=== PATIENT | female | born 1995 | race Caucasian/White ===

== ENCOUNTER 2019-07-09 08:32 | Emergency (ER) | payer SELFPAY ==
[~2019-07-09] VITALS: Ht 154.9 cm; Wt 54.4 kg
[2019-07-09 08:34] VITALS: Ht 154.9 cm; Wt 54.4 kg
[2019-07-09 12:57] VITALS: BP 103/60
== END 2019-07-09 12:57 | disposition home or self-care (01) ==
LOC: ED 08:32
DX: N64.4 Mastodynia (principal)
CPT/HCPCS: 76641

== ENCOUNTER 2020-08-08 15:57 | Emergency (ER) | payer MEDICAID ==
[2020-08-08 16:53] LABS: BASOPHIL % 0.2 % (0-2); PLATELET COUNT 275 x10^3mcL (130-400); RED CELL DISTRIBUTION WIDTH 13.4 % (11.5-14.5)
[2020-08-08 17:20] VITALS: BP 118/70
== END 2020-08-08 18:17 | disposition home or self-care (01) ==
LOC: ED 15:57
PROVIDERS: Emergency Medicine
DX: O26.892 Other specified pregnancy related conditions, second trimester (principal); N89.8 Other specified noninflammatory disorders of vagina; Z3A.14 14 weeks gestation of pregnancy
CPT/HCPCS: Q0092